=== PATIENT | female | born 1970 | race Caucasian/White ===

== ENCOUNTER 2017-04-08 17:57 | Emergency (ER) | payer OTHER, BC ==
[~2017-04-08] VITALS: Ht 170.1 cm; Wt 106.6 kg
[~2017-04-08 17:57] MED LIST: CARAFATE1 G1 PO; DELTASONE10 MG PO; EXALGO8 MG PO; FLEXERIL10 MG PO; HYDROCODONE BIT1 T11 PO; MOTRIN800 MG PO; NYSTATIN CREAM15 GM T; OXYCODONE AND A1 T12 PO; PHENERGAN W/DM120 ML PO; PRILOSEC20 MG PO; PROAIR HFA0.09 MG/AC INH; PROTONIX40 MG PO; REGLAN5 MG PO; VICODIN 5/500 505 MG PO; ZOFRAN ODT4 MG SL; ZOFRAN ODT8 MG PO; ZOFRAN8 MG PO
[2017-04-08] MEDS ORDERED: NAPROSYN500 MG PO (20:17)
[2017-04-08] MEDS ORDERED: MEDROL DOSEPAK4 MG PO (20:17)
[2017-04-08] MEDS ORDERED: CYCLOBENZAPRINE10 MG PO (20:17)
== END 2017-04-08 22:24 | disposition home or self-care (01) ==
LOC: ED 17:57
DX: S63.501A Unspecified sprain of right wrist, initial encounter (principal); S46.911A Strain of unspecified muscle, fascia and tendon at shoulder and upper arm level, right arm, initial encounter; W10.9XXA Fall (on) (from) unspecified stairs and steps, initial encounter; Y93.89 Activity, other specified; Y92.099 Unspecified place in other non-institutional residence as the place of occurrence of the external cause; Y99.8 Other external cause status

== ENCOUNTER → 2017-05-22 | Outpatient (CLI) | payer OTHER, BC ==
[~2017-05-22] MED LIST changes: +CYCLOBENZAPRINE10 MG PO; +MEDROL DOSEPAK4 MG PO; +NAPROSYN500 MG PO
== END | disposition home or self-care (01) ==
LOC: MAMMO 17:20
DX: Z12.31 Encounter for screening mammogram for malignant neoplasm of breast (principal)

== ENCOUNTER → 2018-01-31 | Day surgery (SDC) | payer OTHER, BC ==
[~2018-01-31] VITALS: Ht 170.1 cm; Wt 122.5 kg
[~2018-01-31] MED LIST changes: +METFORMIN HYDR500 MG PO; +SIMVASTATIN10 MG PO; +VITAMIN D5000 UNI1 PO
--- NOTE | ~2018-01-31 | PROC NOTE ---
[place], [place] PROCEDURE NOTE NAME: ARTURO DURBIN UNIT #: [id number] ROOM: DOCTOR: JM ELLIS MD BIRTHDATE: [birth year] DOS: 01/31/2018 PREOPERATIVE DIAGNOSIS: Preoperative for bariatric surgery. POSTOPERATIVE DIAGNOSIS: Gastritis. PROCEDURE: Esophagogastroduodenoscopy. ENDOSCOPIST: Jm Ellis MD FOOD PREPARATION KITCHEN AIDE: MARE. ANESTHESIA: MAC. INDICATIONS: This is a 47-year-old lady who is scheduled for a bariatric procedure in the next few months, who is here for a preoperative esophagogastroduodenoscopy. The procedure and its complications were explained to the patient in detail preoperatively. Complications that were discussed included but were not limited to bleeding, viscus perforation and missed lesions. She agreed to proceed. DESCRIPTION OF PROCEDURE: After identifying the patient, the patient was brought to the endoscopy suite and placed in the left lateral position. After time-out procedure was called, a bite block was placed and IV sedation was administered by the anesthesia team. An adult gastroscope was now introduced into the mouth and advanced sequentially into the pharynx, esophagus, stomach and the first 2 parts of the duodenum. There was mild gastritis seen in the region of the antrum and pylorus, but no active bleeding that could be seen or ulcerations seen in the entirety of the stomach. This was confirmed by retroflexing the scope and looking at the rest of the stomach as well. The scope was then passed into the first 2 parts of the duodenum, which were found to be within normal limits. Upon withdrawal of the scope, the finding of mild antral and prepyloric gastritis was confirmed and the scope was then withdrawn. The esophagus was within normal limits. Upon withdrawal of the scope, the bite block was removed and the patient was brought back to the recovery room in a stable fashion. There were no complications. Dr. Jm Ellis, the attending endoscopist, was present throughout the operating case. [place], [place] PROCEDURE NOTE NAME: ARTURO DURBIN UNIT #: [id number] ROOM: DOCTOR: JM ELLIS MD BIRTHDATE: [birth year] Jm Ellis MD CM:PROCNOTE:PROCEDURE NOTE [id number] JM ELLIS MD
[2018-01-31 07:03] VITALS: BP 137/85
[2018-01-31 07:40] VITALS: BP 131/85
[2018-01-31 07:55] VITALS: BP 122/80
[2018-01-31 08:06] VITALS: BP 122/80
== END | disposition home or self-care (01) ==
LOC: SDC 01-28 13:15
DX: K29.70 Gastritis, unspecified, without bleeding (principal); E11.9 Type 2 diabetes mellitus without complications; E78.5 Hyperlipidemia, unspecified; E66.01 Morbid (severe) obesity due to excess calories; Z87.891 Personal history of nicotine dependence; Z98.51 Tubal ligation status; Z98.84 Bariatric surgery status; Z98.890 Other specified postprocedural states; Z68.41 Body mass index [BMI] 40.0-44.9, adult; Z79.84 Long term (current) use of oral hypoglycemic drugs; Z80.0 Family history of malignant neoplasm of digestive organs; Z80.9 Family history of malignant neoplasm, unspecified

== ENCOUNTER → 2018-04-05 | Outpatient (CLI) | payer OTHER ==
--- NOTE | ~2018-04-05 | EKG ---
[place], [place] ELECTROCARDIOGRAM REPORT NAME: ARTURO DURBIN UNIT #: [id number] ROOM: DOCTOR: EPIPHANY DRAFT REPORT BIRTHDATE: [birth year] [facility] Test Date: 2018-04-05 Test Time: 16:46:43 Pat Name: ARTURO DURBIN Department: Room: Gender: F [employer]oper: Morelia Smiley : 1970 Requested By: JEMAL MCDOWELL CNP Order Number: [id number] Reading MD: Santosh Seaman MD Measurements Intervals [place] Rate: 100 P: 56 OK: 160 QRS: 258 QRSD: 91 T: 16 QT: 396 QTc: 511 Interpretive Statements Sinus tachycardia LAD, consider left anterior fascicular block Poor precordial R-wave progression Consider anterior infarct Prolonged QT interval Electronically Signed On 04-05-2018 18:39:00 PST by Santosh Seaman MD CM:EKGRPT:ELECTROCARDIOGRAM REPORT [id number] JEMAL MCDOWELL CNP EPIPHANY DRAFT REPORT JEMAL MCDOWELL CNP
== END | disposition home or self-care (01) ==
LOC: CARD 16:27
DX: R00.0 Tachycardia, unspecified (principal); I45.81 Long QT syndrome

== ENCOUNTER 2019-08-28 09:41 | Emergency (ER) | payer BC ==
[~2019-08-28] VITALS: Ht 170.1 cm; Wt 68.0 kg
[2019-08-28 10:31] LABS: BASO % 0.4 % (0.0-1.0); EOS % 0.8 % (1.0-4.0); HEMATOCRIT 38.3 % (37.0-47.0); LYMPH # 1.7 10*3/uL (1.3-4.4); LYMPH % 34.7 % (27.0-41.0); MEAN CORPUSCULAR HGB 31.8 pg (27.0-31.0); MEAN CORPUSCULAR HGB CONC 33.4 g/dl (33.0-37.0); MEAN PLATELET VOLUME 9.7 fl (9.6-12.3); MONO # 0.3 10*3/uL (0.1-1.0); MONO % 5.4 % (3.0-9.0); NEUT # 2.8 10*3/uL (2.3-7.9); NEUT % 58.5 % (47.0-73.0); PLATELET COUNT AUTOMATED 206 10*3/uL (130-400); RED BLOOD COUNT 4.03 10*6/uL (4.10-5.10); RED CELL DISTRI WIDTH 12.6 % (0-14.5); WHITE BLOOD COUNT 4.8 10*3/uL (4.8-10.8)
[2019-08-28 10:41] LABS: ACT PARTIAL THROMBO TIME 25.3 SECONDS (20.0-32.1)
[2019-08-28 10:48] LABS: ALBUMIN 3.7 gm/dl (3.1-4.5); ALKALINE PHOSPHATASE 72 U/L (45-117); BUN 15 mg/dl (7-24); CHLORIDE 108 mmol/L (98-107); CREATININE 0.86 mg/dL (0.55-1.02); LIPASE 83 U/L (73-393); POTASSIUM 4.1 mmol/L (3.5-5.1); SGOT/AST 36 IU/L (3-35); SGPT/ALT 48 U/L (12-78); SODIUM 141 mmol/L (136-145); TOTAL PROTEIN 7.2 gm/dL (6.4-8.2)
[2019-08-28 10:49] LABS: TROPONIN I < 0.015 ng/ml (<0.045)
[2019-08-28 13:01] LABS: BILIRUBIN NEGATIVE (NEGATIVE); BLOOD NEGATIVE (NEGATIVE); CLARITY CLEAR (CLEAR); COLOR YELLOW (YELLOW); GLUCOSE NEGATIVE (NEGATIVE); KETONE NEGATIVE (NEGATIVE); LEUKO ESTERASE NEGATIVE (NEGATIVE); NITRITE NEGATIVE (NEGATIVE); SPECIFIC GRAVITY 1.005 (1.005-1.030); UROBILINOGEN 0.2 E.U./dl (0.2-1.0)
[2019-08-28 13:15] LABS: CALCIUM OXALATE CRYSTALS 2+
[2019-08-28] MEDS ORDERED: NORCO 5-325 TA1 EACH PO (13:17)
[2019-08-28] MEDS ORDERED: ZOFRAN4 MG PO (13:17)
== END 2019-08-28 13:28 | disposition home or self-care (01) ==
LOC: ED 09:41
PROVIDERS: Nurse Practitioner Family
DX: K80.50 Calculus of bile duct without cholangitis or cholecystitis without obstruction (principal); E11.9 Type 2 diabetes mellitus without complications; Z79.82 Long term (current) use of aspirin

== ENCOUNTER 2020-06-08 07:33 | Emergency (ER) | payer BC ==
[~2020-06-08] VITALS: Ht 170.1 cm; Wt 70.3 kg
[~2020-06-08 07:33] MED LIST changes: +NORCO 5-325 TA1 EACH PO; +ZOFRAN4 MG PO
[2020-06-08 08:19] LABS: BASO % 0.4 % (0.0-1.0); EOS # 0.1 10*3/uL (0.0-0.4); EOS % 1.8 % (1.0-4.0); HEMATOCRIT 39.8 % (37.0-47.0); LYMPH # 1.5 10*3/uL (1.3-4.4); MEAN CELL VOLUME 94.1 fl (81.0-99.0); MEAN CORPUSCULAR HGB 30.7 pg (27.0-31.0); MEAN CORPUSCULAR HGB CONC 32.7 g/dl (33.0-37.0); MEAN PLATELET VOLUME 9.3 fl (9.6-12.3); MONO # 0.2 10*3/uL (0.1-1.0); MONO % 5.2 % (3.0-9.0); NEUT # 2.6 10*3/uL (2.3-7.9); NEUT % 59.4 % (47.0-73.0); PLATELET COUNT AUTOMATED 205 10*3/uL (130-400); RED BLOOD COUNT 4.23 10*6/uL (4.10-5.10); RED CELL DISTRI WIDTH 12.3 % (0-14.5); WHITE BLOOD COUNT 4.5 10*3/uL (4.8-10.8)
[2020-06-08 08:36] LABS: ALBUMIN 3.7 gm/dl (3.1-4.5); ALKALINE PHOSPHATASE 79 U/L (45-117); BUN 13 mg/dl (7-24); CHLORIDE 109 mmol/L (98-107); CREATININE 0.92 mg/dL (0.55-1.02); LIPASE 82 U/L (73-393); POTASSIUM 4.1 mmol/L (3.5-5.1); SGOT/AST 36 IU/L (3-35); SGPT/ALT 45 U/L (12-78); SODIUM 140 mmol/L (136-145); TOTAL PROTEIN 7.3 gm/dL (6.4-8.2)
[2020-06-08 09:36] LABS: BILIRUBIN 1+ (Negative); BLOOD 2+ (Negative); CLARITY Turbid (Clear); GLUCOSE Negative (Negative); KETONE Negative (Negative); NITRITE Positive (Negative); PH 5.5 (4.5-8.0); SPECIFIC GRAVITY 1.025 (1.001-1.030)
[2020-06-08 09:42] LABS: COLOR Dark Yellow (Yellow)
[2020-06-08 09:43] LABS: LEUKO ESTERASE 2+ (Negative)
[2020-06-08 09:50] LABS: RBC TNTC rbc/hpf (0-2)
[2020-06-08] MEDS ORDERED: PERCOCET 5-3251 EACH PO (11:26)
[2020-06-08] MEDS ORDERED: FLOMAX0.4 MG PO (11:26)
[2020-06-08] MEDS ORDERED: CIPRO500 MG PO (11:26)
[2020-06-08] MEDS ORDERED: PHENERGAN25 M3 PO (11:26)
== END 2020-06-08 11:44 | disposition home or self-care (01) ==
LOC: ED 07:33
PROVIDERS: Emergency Medicine
DX: N13.2 Hydronephrosis with renal and ureteral calculous obstruction (principal); N39.0 Urinary tract infection, site not specified; E11.9 Type 2 diabetes mellitus without complications; Z87.442 Personal history of urinary calculi; Z79.899 Other long term (current) drug therapy; Z98.51 Tubal ligation status; Z98.890 Other specified postprocedural states